=== PATIENT | female | born 1960 | race Caucasian/White ===

== ENCOUNTER 2017-11-16 10:58 | Inpatient (IN) | payer OTHER ==
[~2017-11-16] VITALS: Ht 167.6 cm; Wt 60.3 kg
--- NOTE | 2017-11-16 11:09 | NUR ---
Arrived via BLS ambulance for blood found in diaper at SNF today. Patient to ER bed 6 to gown for evaluation. Side rails up. Report given to Aníbal ROMERO.
[2017-11-16 11:10] VITALS: BP_SYST 133
[2017-11-16] MEDS ORDERED: BENZ1TAB7 PO (11:14)
[2017-11-16] MEDS ORDERED: MULT PO (11:14)
[2017-11-16] MEDS ORDERED: RISP3TAB5 PO (11:14)
[2017-11-16] MEDS ORDERED: LORA-259 PO (11:14)
[2017-11-16] MEDS ORDERED: PRO40 PO (11:14)
[2017-11-16] MEDS ORDERED: SERT25TA PO (11:14)
[2017-11-16] MEDS ORDERED: LACT10SO66 PO (11:14)
[2017-11-16] MEDS ORDERED: THIA100T13 PO (11:14)
--- NOTE | 2017-11-16 11:25 | NUR ---
# 16 FR In and Out catheter with use of sterile technique. Immediate return of 40 ml red cloudy urine noted. Urine sample collected and sent to lab. Pt tolerated procedure well.
[2017-11-16] MEDS ORDERED: NS 500 ML IV SCH (11:32)
--- NOTE | 2017-11-16 11:50 | NUR ---
Pt presents to ER brought in by S ambulance, because staff at [facility] found blood in pt's diaper. Pt does not appear to be in any acute distress, respirations even and unlabored, awake but not oriented, pt shows no signs of pain or discomfort.
--- NOTE | 2017-11-16 11:50 | NUR ---
Note undone in EDM - 11/16/17 at 1200 by [email or web address] Pt presents to ER brought in by S ambulance, because staff at [facility] found blood in pt's diaper. Pt does not appear to be in any acute distress, respirations even and unlabored, alert but not oriented, pt shows no signs of pain or discomfort.
--- NOTE | 2017-11-16 11:53 | NUR ---
Spoke with Akin jermaine broth who requests that we call him when we have more info .
[2017-11-16 11:55] LABS: BASOPHILS % (AUTO) 0.4 % (0.0-2.0); EOSINOPHILS # (AUTO) 0.1 K/uL (0.0-0.4); EOSINOPHILS % (AUTO) 0.9 % (0.0-4.0); HEMATOCRIT 44.2 % (36-48); HEMOGLOBIN 14.3 g/dL (12.0-16.0); LYMPHOCYTES # (AUTO) 1.8 K/uL (1.0-5.5); LYMPHOCYTES % (AUTO) 22.3 % (20.5-51.5); MEAN CORPUSCULAR HEMOGLOBIN 29 pg (27-31); MEAN CORPUSCULAR HGB CONC 32 % (32-36); MEAN CORPUSCULAR VOLUME 90 fL (79.0-98.0); MONOCYTES # (AUTO) 0.5 K/uL (0.0-1.0); MONOCYTES % (AUTO) 6.1 % (1.7-9.3); NEUTROPHILS # (AUTO) 5.7 K/uL (1.8-7.7); NEUTROPHILS % (AUTO) 70.3 % (40.0-70.0); PLATELET COUNT (AUTO) 240 K/uL (130-430); RED CELL DISTRIBUTION WIDTH 12.6 % (9.0-15.0); WHITE BLOOD COUNT (AUTO) 8.1 K/uL (4.8-10.8)
[2017-11-16 12:09] LABS: CALCIUM 9.9 mg/dL (8.4-11.0); CREATININE 0.72 mg/dL (0.55-1.30); POTASSIUM 3.4 mmol/L (3.5-5.1)
[2017-11-16 12:10] LABS: INR 1.1 (0.8-1.2); PROTHROMBIN TIME 11.2 SECS (9.5-12.5)
[2017-11-16 12:12] LABS: ALBUMIN 3.9 g/dL (3.4-4.8)
--- NOTE | 2017-11-16 12:38 | NUR ---
Pt resting at this time, VSS, skin pink and warm, respirations even and unlabored.
[2017-11-16 13:29] LABS: BILIRUBIN,URINE NEGATIVE (NEGATIVE); BLOOD, URINE 3+ (NEGATIVE); CLARITY/URINE CLOUDY (CLEAR); COLOR,URINE RED (YELLOW); GLUCOSE,URINE NEGATIVE (NEGATIVE); KETONES,URINE 1+ (NEGATIVE); LEUKOCYTE ESTERASE ,URINE 2+ (NEGATIVE); NITRITE, URINE POSITIVE (NEGATIVE); PH,URINE 6.5 (5.0-8.0); PROTEIN URINE 3+ (NEGATIVE)
[2017-11-16 13:40] LABS: BACTERIA,URINE MANY /HPF (None Seen); MUCUS,URINE None Seen /LPF (None Seen); RBC,URINE >100 /HPF (0-3); WBC,URINE >100 /HPF (0-3)
[2017-11-16] MEDS ORDERED: NACL 0.9% 1,000 ML IV ONE (13:45)
--- NOTE | 2017-11-16 13:45 | NUR ---
Pt resting on gurney, vss, no signs of distress. Will continue to monitor.
[2017-11-16] MEDS ORDERED: cefTRIAXone 1 GM IVPB PREMIX 50 ML IV ONE (14:00)
--- NOTE | 2017-11-16 14:30 | NUR ---
Pt resting on gurney, vss, no signs of distress. Will continue to monitor.
[2017-11-16] MEDS ORDERED: HYDROcodone/ACETAMIN 10-325 MG TAB PO PRN (15:00)
[2017-11-16] MEDS ORDERED: HYDROcodone/ACETAMIN 5-325 MG TAB (NORCO/ VICODIN) PO PRN (15:00)
[2017-11-16] MEDS ORDERED: ACETAMINOPHEN 325 MG TABLET PO PRN (15:00)
[2017-11-16] MEDS ORDERED: ONDANSETRON HCL 4 MG/2 ML VIAL IVP PRN (15:00)
--- NOTE | 2017-11-16 15:00 | NUR ---
Transfer to [facility]. IV present no sign or symptom of infiltration.
--- NOTE | 2017-11-16 15:00 | NUR ---
Patient will be admitted to care of Dr. Vinod Pan. Admitted to medsurg unit. Will go to room 135. Belongings list completed. Summary report printed. Report will be given at bedside.
--- NOTE | 2017-11-16 15:14 | NUR ---
ADMISSION NOTE Received patient from ER via gurney. Patient admitted with diagnosis of uti. Patient is confused. Personal belongings checked and Belongings List documented. Call light within reach. Safety precautions in place.
[2017-11-16 15:58] VITALS: BP_SYST 136
--- NOTE | 2017-11-16 16:05 | NUR ---
Pt Received from [facility] Pt received from NICK Hurt. Pt non verbal, and unable to communicate. Pt opens eyes to voice but not able to follow directions. Pt has no s/s of SOB or distress, no grimacing or indications of pain or discomfort. Assessment completed. IV patent and infusing remainder of NS liter from ER. No other fluids ordered at this time. No diet ordered yet but pt normally eats regular mechanical soft at [facility]. Pt occasionally sits up and exhibits random movements.
[2017-11-16] MEDS ORDERED: FLU VACC QS 2017-18(36MOS+)/PF 0.5 ML/SYR SYRINGE I.M. PRN (16:15)
--- NOTE | 2017-11-16 18:03 | NUR ---
ID consult: Dr. Lionel colvin.
--- NOTE | 2017-11-16 18:31 | NUR ---
Rounding note Pt resting in bed, no s/s of SOB or distress, breathing even and unlabored. No grimacing or indication of pain or discomfort. IV fluid completed. IV remains patent.
[2017-11-16 19:30] VITALS: BP_SYST 107
--- NOTE | 2017-11-16 19:30 | NUR ---
INITIAL NOTE Patient resting on the bed, repeating sitting up and lying down in the bed. No acute distress. Respiration even and unlabored. Skin warm and dry to touch. SL intact to LAC, no redness, no swelling, patent. Safety measure maintained. Bed locked in lowest position, side rails up, bed alarm on. Call light within reached. Will continue to monitor.
--- NOTE | 2017-11-16 19:57 | NUR ---
Closing note pt resting in bed, nos s/s of SOB or distress, no grimacing or indications of pain or discomfort. Pt care endorse and report given to NOC shift nurse. Rick, RN asked if Dr Long had seen pt, but I am unaware if he did. Bed left in low locked position with bed alarm on.
[2017-11-16] MEDS: LORazepam 1 MG TABLET PO SCH (21:00)
--- NOTE | 2017-11-16 21:25 | NUR ---
NOTE Patient resting on the bed with eyes closed. No acute distress. Respiration even and unlabored. Safety measure maintained. Bed locked with lowest position, side rails up, bed alarm on. Call light within reached. Close monitor.
--- NOTE | 2017-11-16 21:48 | NUR ---
SEBASTIEN Bhatia MD for diet orders. NICK Wright informed me that the patient was able to tolerate PO medication w/ applesauce.
--- NOTE | 2017-11-16 22:51 | NUR ---
CALLED BACK Dr. Pan called back w/ diet orders for mechanical soft. Addendum: 11/16/17 at 2256 by Eleazar Ward RN
--- NOTE | 2017-11-16 23:10 | NUR ---
NOTE Patient resting on the bed with eyes closed. No acute distress. Respiration even and unlabored. Skin warm and dry to touch. SL intact. Safety measure maintained. Bed locked with lowest position, side rails up, bed alarm on. Call light within reached. Continue to close monitor.
[2017-11-17] VITALS: BP_SYST 115
--- NOTE | 2017-11-17 01:15 | NUR ---
NOTE Patient resting on the bed with eyes closed. No acute distress. Respiration even and unlabored. Skin warm and dry to touch. Safety measure maintained. Call light within reached. Bed locked with lowest position, side rails up, bed alarm on. Continue to close monitor.
--- NOTE | 2017-11-17 03:45 | NUR ---
NOTE Patient resting on the bed with eyes closed. No acute distress. Skin warm and dry to touch. Safety measure maintained. Bed locked with lowest position, side rails up, bed alarm on. Call light within reached. Continue to close monitor.
[2017-11-17 06:20] LABS: BASOPHILS % (AUTO) 0.4 % (0.0-2.0); EOSINOPHILS # (AUTO) 0.1 K/uL (0.0-0.4); EOSINOPHILS % (AUTO) 1.6 % (0.0-4.0); HEMATOCRIT 36.4 % (36-48); HEMOGLOBIN 12.2 g/dL (12.0-16.0); LYMPHOCYTES # (AUTO) 2.3 K/uL (1.0-5.5); LYMPHOCYTES % (AUTO) 38.8 % (20.5-51.5); MEAN CORPUSCULAR HEMOGLOBIN 30 pg (27-31); MEAN CORPUSCULAR HGB CONC 34 % (32-36); MEAN CORPUSCULAR VOLUME 90 fL (79.0-98.0); MONOCYTES # (AUTO) 0.5 K/uL (0.0-1.0); MONOCYTES % (AUTO) 9.4 % (1.7-9.3); NEUTROPHILS # (AUTO) 2.9 K/uL (1.8-7.7); NEUTROPHILS % (AUTO) 49.8 % (40.0-70.0); PLATELET COUNT (AUTO) 206 K/uL (130-430); RED BLOOD CELL COUNT(AUTO) 4.03 MIL/uL (4.2-6.2); RED CELL DISTRIBUTION WIDTH 12.4 % (9.0-15.0); WHITE BLOOD COUNT (AUTO) 5.8 K/uL (4.8-10.8)
--- NOTE | 2017-11-17 06:34 | NUR ---
CLOSING NOTE Patient resting on the bed with eyes closed. No acute distress. Respiration even and unlabored. SL intact, no redness, no swelling. All needs met. Safety measure maintained. Bed locked with lowest position, side rails up, bed alarm on. Call light within reached. Close monitor done, close to nurse station. Will endorse to morning shift nurse.
[2017-11-17 06:49] LABS: ANION GAP 5 (5-15); C-REACTIVE PROTEIN QUANT < 0.2 mg/dL (0-0.5); CALCIUM 9.4 mg/dL (8.4-11.0); CHLORIDE 117 mmol/L (98-107); CREATININE 0.64 mg/dL (0.55-1.30); GLUCOSE 98 mg/dL (70-99); POTASSIUM 3.6 mmol/L (3.5-5.1); SODIUM SERUM 148 mmol/L (136-145); UREA NITROGEN, BLOOD 25 mg/dL (8-21)
--- NOTE | 2017-11-17 07:53 | NUR ---
Nutrition Update Matt Scale 15 noted. Pt admitted for UTI Diet: mechanical soft diet BMI: 21.5 kg/m2 RD to follow per nutrition care standards.
[2017-11-17 08:00] VITALS: BP_SYST 154
[2017-11-17 08:00] LABS: GFR AFRICAN AMERICAN 123 mL/min (>90)
--- NOTE | 2017-11-17 08:00 | NUR ---
initial note RECEIVED REPORT AND PATIENT FROM WAREHOUSE DELIVERY DRIVER NURSE. PATIENT IN BED, SLEEPING, RESPONDS TO DEEP STIMULI. NO RESPIRATORY DISTRESS NOTED. VS STABLE. SAFETY PRECAUTIONS MAINTAINED, BED ON LOWEST POSITION, LOCKED, BED ALARM ACTIVATED. CALL LIGHT WITHIN REACH, WILL CONTINUE TO MONITOR.
--- NOTE | 2017-11-17 09:03 | NUR ---
DR. FONSECA AT BEDSIDE DR. FONSECA MADE ROUNDS, ASSESSED THE PATIENT. PATIENT STILL SLEEPING, RESPONDS TO STIMULI. GAVE NEW ORDERS.
[2017-11-17 09:19] LABS: ERYTHROCYTE SEDIMENTATION RATE 16 MM/HR (0-20)
[2017-11-17] MEDS: cefTRIAXone 1 GM IVPB PREMIX 50 ML IV SCH (09:23)
[2017-11-17] MEDS: MULTIVITAMINS TAB 1 TABLET PO SCH (09:24)
[2017-11-17] MEDS: SERTRALINE HCL 50 MG TABLET PO SCH (09:24)
[2017-11-17] MEDS: PANTOPRAZOLE SODIUM 40 MG TAB PO SCH (09:24)
[2017-11-17] MEDS: THIAMINE HCL 100 MG TABLET PO SCH (09:24)
[2017-11-17] MEDS: LORazepam 1 MG TABLET PO SCH ×2 (09:25→21:00)
--- NOTE | 2017-11-17 11:20 | NUR ---
NOTE PATIENT IN BED, STILL SLEEPING AT THIS TIME, RESPONDS TO DEEP STIMULI, NON VERBAL. VS STABLE, NO RESPIRATORY DISTRESS NOTED. NO FACIAL GRIMACING OR COMPLAINS OF PAIN AT THIS TIME. CALL LIGHT WITHIN REACH, WILL CONTINUE TO MONITOR.
[2017-11-17 12:04] VITALS: BP_SYST 106
--- NOTE | 2017-11-17 12:15 | NUR ---
NOTE TALKED TO ZULMA, REHAB ASSISTANT ASKED A FEW QUESTIONS REGARDING THE PATIENT, REPORT GIVEN. ZULMA STATED THAT SHE WILL CALL SNF WHERE THE PATIENT CAME FROM.
--- NOTE | 2017-11-17 14:52 | NUR ---
Discharge Planning RIB KNITTER conducted a Discharge Planning Assessment. RIB KNITTER spoke with patient's nurse. Patient is unable to communicate meaningfully. RIB KNITTER attempted to reach admitting or a charge nurse at [facility], , where patient resides, several times today and left voicemail messages. No return call at this time. RIB KNITTER phoned patient's brother, Keenan, . He is not very involved in patient's care, but stated he does hope that patient will return to [facility] upon discharge and would like to be notified of what is happening with patient. Plan at this time would be for patient to return to [facility] upon discharge. Case Management will continue to follow.
[2017-11-17] MEDS: LORazepam 2 MG/ML VIAL IVP PRN (15:02)
--- NOTE | 2017-11-17 15:02 | NUR ---
NOTE PATIENT IN BED, JUST FINISHED EATING LUNCH WITH THE ASSISTANCE OF WASTE COLLECTION DRIVER. PATIENT IS VERY CONFUSED, ROCKING BACK AND FORTH, SITTING UP THEN RAISING BOTH LEGS. PRN ANXIETY MEDICATION GIVEN FOR SAFETY. BED LOCKED, ON LOWEST POSITION, BED ALARM ACTIVATED. CALL LIGHT WITHIN REACH, WILL CONTINUE TO MONITOR.
[2017-11-17 16:30] VITALS: BP_SYST 148
--- NOTE | 2017-11-17 17:30 | NUR ---
NOTE PATIENT IN BED, SLEEPING AT THIS TIME, RESPONDS TO DEEP STIMULI. NO RESPIRATORY DISTRESS NOTED. VS STABLE. CALL LIGHT WITHIN REACH, WILL CONTINUE TO MONITOR.
--- NOTE | 2017-11-17 18:58 | NUR ---
CLOSING NOTE PATIENT IN BED, STILL SLEEPING, RESPONDS TO DEEP STIMULI. LEFT DINNER TRAY FOR WHEN THE PATIENT WAKES UP AND WANTS TO EAT. SAFETY PRECAUTIONS MAINTAINED, BED LOCKED, ON LOWEST POSITION, BED ALARM ACTIVATED. CALL LIGHT ON HAND WILL GIVE REPORT TO MARINE FISHERIES TECHNICIAN NURSE.
[2017-11-17 20:00] VITALS: BP_SYST 142
--- NOTE | 2017-11-17 20:00 | NUR ---
Opening Note Received patient and report from day shift nurse. Patient is sleeping in bed, no s/s of distress or discomfort noted. Patient arousable to tactile stimuli, but does not open eyes or speak. Unable to assess orientation at this time. Patient does not appear able to verbalize needs. Fall and safety precautions in place. Fall and safety precautions in place. Bed is locked in lowest position and bed alarm on. Call light with patient. MASTER LAY OUT SPECIALIST in the room, will continue to monitor.
--- NOTE | 2017-11-17 21:49 | NUR ---
Holding Ativan Holding scheduled Ativan as patient is too drowsy. Patient unable to sit up, open eyes or speak. Will continue to monitor.
--- NOTE | 2017-11-17 23:15 | NUR ---
Rounding Note Patient is sleeping in bed. No s/s of distress or discomfort noted. Fall and safety precautions in place. Call light with patient. TALENT ANALYST in room.
--- NOTE | 2017-11-18 00:19 | NUR ---
Rounding note Patient is awake in bed. Appears agitated and disoriented. Continuously sitting up in bed and laying back down. Moving legs up and down. Attempting to calm the patient. Fall and safety precautions in place. Nurse in the room.
[2017-11-18 01:27] VITALS: BP_SYST 101
[2017-11-18] MEDS: LORazepam 2 MG/ML VIAL IVP PRN ×3 (01:29→22:31)
--- NOTE | 2017-11-18 01:36 | NUR ---
PRN Ativan Patient is becoming more agitated. Patient is kicking up feet and flinging self forward and backward. Patient is speaking to self. Unable to engage patient. Will continue to monitor. CRATE ICER in the room.
--- NOTE | 2017-11-18 03:29 | NUR ---
Rounding note Patient appears to have calmed down. Patient is sleeping in bed. No s/s of distress or discomfort. Breathing is even and unlabored. Will continue to monitor.
--- NOTE | 2017-11-18 04:31 | NUR ---
Rounding Note Patient sleeping in bed. No s/s of distress or discomfort. Fall and safety precautions in place. TAR PROCESSING TECHNICIAN in room. Call light with patient. Will continue to monitor.
[2017-11-18 06:01] LABS: BASOPHILS % (AUTO) 0.5 % (0.0-2.0); EOSINOPHILS # (AUTO) 0.1 K/uL (0.0-0.4); EOSINOPHILS % (AUTO) 1.4 % (0.0-4.0); HEMATOCRIT 37.5 % (36-48); HEMOGLOBIN 12.8 g/dL (12.0-16.0); LYMPHOCYTES # (AUTO) 2.6 K/uL (1.0-5.5); LYMPHOCYTES % (AUTO) 34.4 % (20.5-51.5); MEAN CORPUSCULAR HEMOGLOBIN 31 pg (27-31); MEAN CORPUSCULAR HGB CONC 34 % (32-36); MEAN CORPUSCULAR VOLUME 90 fL (79.0-98.0); MONOCYTES # (AUTO) 0.5 K/uL (0.0-1.0); MONOCYTES % (AUTO) 7.1 % (1.7-9.3); NEUTROPHILS # (AUTO) 4.2 K/uL (1.8-7.7); NEUTROPHILS % (AUTO) 56.6 % (40.0-70.0); PLATELET COUNT (AUTO) 191 K/uL (130-430); RED BLOOD CELL COUNT(AUTO) 4.17 MIL/uL (4.2-6.2); RED CELL DISTRIBUTION WIDTH 12.6 % (9.0-15.0); WHITE BLOOD COUNT (AUTO) 7.4 K/uL (4.8-10.8)
[2017-11-18 06:09] LABS: C-REACTIVE PROTEIN QUANT 0.3 mg/dL (0-0.5); CALCIUM 9.7 mg/dL (8.4-11.0); CREATININE 0.55 mg/dL (0.55-1.30); POTASSIUM 3.6 mmol/L (3.5-5.1)
--- NOTE | 2017-11-18 06:52 | NUR ---
Closing note Will endorse care and report to day shift nurse. Patient is currently sleeping in bed. No s/s of distress or discomfort noted. Patient is in stable condition at this time. No significant changes throughout shift. Patient medicated for anxiety once on shift. All needs met throughout shift. Fall and safety precautions maintained. Bed alarm maintained. Call light with patient. Will continue to monitor.
--- NOTE | 2017-11-18 07:30 | NUR ---
Opening Note patient is resting in bed, eyes closed, arouses to deep stimuli, unable to assess orientation of patient, attempted to reorient her, was unsuccessful, IV site saline locked, flushes well, vital signs assessed at this time, blood pressure reading low but patient's breathing is unlabored with symmetrical chest expansion, will continue to monitor blood pressure periodically, safety precautions in place, bed in lowest position with 3 side rails up, bed alarm on, will continue to monitor closely
[2017-11-18 08:31] LABS: ERYTHROCYTE SEDIMENTATION RATE 14 MM/HR (0-20)
[2017-11-18 08:36] VITALS: BP_SYST 90
[2017-11-18] MEDS: LORazepam 1 MG TABLET PO SCH ×2 (09:00→21:00)
[2017-11-18] MEDS: cefTRIAXone 1 GM IVPB PREMIX 50 ML IV SCH (10:18)
--- NOTE | 2017-11-18 10:43 | NUR ---
Blood pressure is 115/63 at this time, heart rate is 59, patient is difficult to arouse, attempting to reorient patient, eyes are closed, breathing unlabored on room air, head of bed is elevated, unable to wake up to take morning medications, will attempt again shortly, safety precautions in place, bed in lowest position with 3 side rails up, bed alarm on, will continue to monitor closely
[2017-11-18] MEDS: MULTIVITAMINS TAB 1 TABLET PO SCH (12:02)
[2017-11-18] MEDS: SERTRALINE HCL 50 MG TABLET PO SCH (12:03)
[2017-11-18] MEDS: THIAMINE HCL 100 MG TABLET PO SCH (12:03)
[2017-11-18] MEDS: PANTOPRAZOLE SODIUM 40 MG TAB PO SCH (12:03)
--- NOTE | 2017-11-18 12:14 | NUR ---
Morning Medication Patient is awake, unable to open eyes, educated patient on morning medications, she is confused, she was able to consume medications crushed with apple sauce and drink water, did not want to eat lunch at this time, will attempt again shortly, breathing unlabored on room air, no signs of distress at this time, safety precautions in place, bed in lowest position with 3 side rails up, bed alarm on, will continue to monitor closely
[2017-11-18 12:22] VITALS: BP_SYST 117
--- NOTE | 2017-11-18 13:38 | NUR ---
RN Notes Patient is resting in bed, head of bed is elevated, no signs of respiratory distress on room air, symmetrical chest expansion, she was positioned to her left side, safety and aspiration precautions remain in place, bed in lowest position with 3 side rails up and in locked position, bed alarm on, head of bed elevated, call light and bedside table within reach, will continue to monitor closely
--- NOTE | 2017-11-18 15:15 | NUR ---
RN Notes Patient is resting in bed, she is positioned on her right side, breathing unlabored on room air, no complaints of pain, attempted to wake patient up with deep stimuli, unable to arouse, will continue to monitor patient closely, safety and aspiration precautions still in place, head of bed elevated, bed alarm and bedside table within reach, call light within reach.
--- NOTE | 2017-11-18 16:18 | NUR ---
Ativan administered for anxiety, patient attempting to get out of bed, attempted to reorient patient but was unsuccessful, she is non-verbal, breathing unlabored on room air, IV site patent and in tact, no signs of redness or swelling, safety and aspiration precautions remain in place, head of bed elevated, bed alarm and bedside table within reach, call light within reach, will continue to monitor patient
[2017-11-18 16:27] VITALS: BP_SYST 140
--- NOTE | 2017-11-18 18:50 | NUR ---
Closing Note Patient resting in bed, she is resting with eyes closed, breathing symmetrical and unlabored on room air, no complaints of pain at this time, blood pressure was assessed and was 127/74, no other needs at this time, safety and aspiration precautions remain in place, head of bed elevated, bed alarm and bedside table within reach, will endorse to associate director qa nurse
[2017-11-18 20:00] VITALS: BP_SYST 106
--- NOTE | 2017-11-18 20:00 | NUR ---
Opening note Received patient and report from day shift nurse. Patient is nonverbal, unable to assess orientation. Patient is sleeping in bed at this time. Iv to the left AC is intact and patent with no signs of infiltration. Bed is locked in lowest position. Bed alarm is on. Call light with patient. Will continue to monitor closely.
--- NOTE | 2017-11-18 21:00 | NUR ---
Held Ativan Ativan held due to patients sleeping and appearing very drowsy. Patient also does not appear capable of taking PO medication at this time. Will continue to monitor.
--- NOTE | 2017-11-18 22:31 | NUR ---
Prn Ativan Patient appears agitated and disoriented. Patient is constantly moving feet in bed. Administered prn ativan per orders. Assisted STUDIO GRIP with perineal care.
[2017-11-19 00:14] VITALS: BP_SYST 113
--- NOTE | 2017-11-19 00:30 | NUR ---
rounding note patient resting in bed. Periodically sits up in bed and lays down. Will continue to monitor.
--- NOTE | 2017-11-19 02:11 | NUR ---
Rounding note Patient is awake in bed. Patient appears restless at this time. Breathing is even and unlabored. Fall and safety precautions in place. Will continue to monitor.
[2017-11-19] MEDS: LORazepam 2 MG/ML VIAL IVP PRN ×2 (02:29→16:43)
--- NOTE | 2017-11-19 02:29 | NUR ---
PRN ativan Patient appears very agitated and restless. Constantly sitting up and laying down. Pt. kicking legs up. Administered PRN ativan. Will continue to monitor.
--- NOTE | 2017-11-19 05:28 | NUR ---
Rounding note Patient is sleeping in bed. No s/s of distress or discomfort noted. Breathing is even and unlabored. Fall and safety precautions in place. Will continue to monitor.
--- NOTE | 2017-11-19 07:02 | NUR ---
Closing Note Will endorse care and report to day shift nurse. Patient is currently sleeping in bed. Patient remains out of contact and restless throughout shift. Patient is in stable condition at this time. No significant changes to note while on shift. Fall and safety precautions maintained while on shift. Bed alarm remain activated throughout shift. ESCROW MANAGER in room at this time. Call light with patient. Will continue to monitor.
--- NOTE | 2017-11-19 07:08 | NUR ---
FOLLOW UP ON INFECTIOUS DISEASE CONSULT REASON FOR CONSULTATION:INFECTIOUS DISEASE ([place]) WAS CONSULT CALLED?Y PERSON WHO WAS NOTIFIED:ENEIDA CONSULTING PHYSICIAN:JEREMIAH FULLER MARINE FIRER SPECIALTY:INFECTIOUS DISEASE MARINE FIRER PHONE NUMBER:[phone] ORDERING PHYSICIAN:
[2017-11-19 07:28] VITALS: BP_SYST 91
--- NOTE | 2017-11-19 07:30 | NUR ---
Opening Note Patient resting in bed with eyes closed, breathing unlabored on room air, attempted to wake the patient with deep stimuli and shaking, difficult to arouse, IV site saline locked, flushes well, safety and aspiration precautions in place, bed in lowest position with 3 side rails up, head of bed elevated, bedside table, room close to nurses' station, will continue to monitor patient
[2017-11-19] MEDS ORDERED: SULF1TAB48 PO (08:58)
[2017-11-19] MEDS: SERTRALINE HCL 50 MG TABLET PO SCH (09:00)
[2017-11-19] MEDS: LORazepam 1 MG TABLET PO SCH (09:00)
[2017-11-19] MEDS: MULTIVITAMINS TAB 1 TABLET PO SCH (09:00)
[2017-11-19] MEDS: PANTOPRAZOLE SODIUM 40 MG TAB PO SCH (09:00)
[2017-11-19] MEDS: THIAMINE HCL 100 MG TABLET PO SCH (09:00)
--- NOTE | 2017-11-19 09:01 | NUR ---
Medication Administration attempted to wake patient with deep stimuli, difficult to arouse, attempted to give patient water, she was unable to take a sip, did not administer morning medications due to inability to intake medications orally at this time, will inform MD, safety and aspiration precautions remain in place, bed in lowest position with 3 side rails up, head of bed elevated, bedside table, room close to nurses' station, will continue to monitor patient
[2017-11-19] MEDS ORDERED: CIPROFLOXACIN HCL 500 MG TABLET PO SCH (10:00)
--- NOTE | 2017-11-19 11:10 | NUR ---
Discharge Planning: Pt has order to return to [facility], [facility] has faxed pt's information to [facility] ([phone] p.[phone]) for review. [facility] will follow up to check bed availability. Addendum: 11/19/17 at 1617 by Flores Damian LCSW [facility] has left several messages for Vimal in admission at [facility]; [facility] received call back at 4:00pm stating that an auth was needed for the IV antibiotics. [facility] has asked CM to contact insurance for the auth. Ambulance has been placed on will call with [facility] ([phone]).
--- NOTE | 2017-11-19 11:15 | NUR ---
RN Notes Patient resting in bed with eyes closed, head of bed elevated, she is positioned to her side, she is on room air, breathing with symmetrical chest expansion, no signs of distress at this time, fall and aspiration precautions in place, bed in lowest position with 3 side rails up, head of bed elevated, bed alarm on, room close to nurses' station, will continue to monitor patient
[2017-11-19 11:24] VITALS: BP_SYST 92
--- NOTE | 2017-11-19 12:56 | NUR ---
PAGED PAGED BRYAN MCELROY AT [phone] SPOKE WITH YOSELIN.
--- NOTE | 2017-11-19 13:30 | NUR ---
Administered Cipro by mouth, patient was able to consume with small amount of applesauce, she was able to consume lunch with help from Walker BARRETO, no signs of distress at this time, breathing unlabored on room air, safety and aspiration precautions in place, bed in lowest position with 3 side rails up, bed alarm on, head of bed elevated, room close to nurses' station, will continue to monitor patient
--- NOTE | 2017-11-19 14:08 | NUR ---
RN Notes Patient resting in bed with eyes closed, she is positioned to her side, no signs of respiratory distress, breathing symmetrical on room air, safety, fall and aspiration precautions in place, bed in lowest position with 3 side rails up, bed alarm on, head of bed elevated, room close to nurses' station, will continue to monitor patient
[2017-11-19 15:31] VITALS: BP_SYST 108
--- NOTE | 2017-11-19 16:52 | NUR ---
DC Planning: I called [facility] director of casework Nikole who directed me to call Chelsea at [phone]--I left message at [phone] to get auth for SNF for IV abx--I also called dada Magana at [phone]--Izzy gave SNF auth#[id number] for [facility] SNF and ambulance auth#[id number]--cdm any ambulance--[facility] scheduled for BLS pickling drum operator at 1830--son Rivas made aware-agreeable for transfer--nurse Joy made aware of pickling drum operator time--Lacie at [facility] [phone] mark auth--gave rm#[id number]. YENNIFER RN
--- NOTE | 2017-11-19 16:54 | NUR ---
Ativan PRN given at this time via IV push for anxiety, attempted to reorient patient prior to administration but was unsuccessful, IV site patent and in tact, breathing unlabored on room air, symmetrical chest expansion, blood pressure was 131/68, safety and aspiration precautions still in place, bed in lowest position with 3 side rails up, head of bed elevated, bedside table close to patient, room close to nurses' station, will continue to monitor patient
--- NOTE | 2017-11-19 17:00 | NUR ---
SNF transfer packet taken to nurse station--YENNIFER ROMERO
[2017-11-19 17:34] VITALS: BP_SYST 108
--- NOTE | 2017-11-19 19:05 | NUR ---
PT TRANSFERRED Report given to riley at [facility]. Transfer packet with Transfer Orders and Medication Reconciliation form given to EMT with report. IV catheter sent with patient, wrapped with gauze bandage All belongings sent with patient. Patient left floor via gurney escorted by EMT in no distress.
== END 2017-11-19 19:05 | DRG 720 ==
LOC: SED 10:58 → SMU 14:57
PROVIDERS: ADMIT Preventive Medicine Preventive Medicine/Occupational Environmental Medicine; ATTEND Preventive Medicine Preventive Medicine/Occupational Environmental Medicine
DX: A41.9 Sepsis, unspecified organism (principal); E87.0 Hyperosmolality and hypernatremia; N39.0 Urinary tract infection, site not specified; E87.6 Hypokalemia; F32.9 Major depressive disorder, single episode, unspecified; I10 Essential (primary) hypertension; F29 Unspecified psychosis not due to a substance or known physiological condition; R73.9 Hyperglycemia, unspecified; E86.0 Dehydration; E51.2 Wernicke's encephalopathy; B96.20 Unspecified Escherichia coli [E. coli] as the cause of diseases classified elsewhere; Z79.899 Other long term (current) drug therapy
CPT/HCPCS: 36415; 80048; 80053; 81000-TC; 85025; 85610-TC; 85651-TC; 85730-TC; 86140; 86870; 86886; 86900; 86901; 87040-TC; 87081; 87086; 87186-TC; 93005; 96365; 99285; J0696; J2060; J7030; J7040